=== PATIENT | female | born 1945 | race Caucasian/White ===

== ENCOUNTER → 2019-11-19 | Day surgery (SDC) | payer MEDICARE, OTHER ==
[2019-11-14 10:54] LABS: BASOPHILS % 0.4 % (0.0-1.0); EOSINOPHILS # (AUTO) 0.1 (0.0-0.4); EOSINOPHILS % 1.3 % (0.0-6.0); HEMATOCRIT 40.1 % (34.2-44.1); HEMOGLOBIN 12.9 g/dL (12.0-16.0); LYMPHOCYTES % 28.4 % (18.0-39.1); MEAN CORPUSCULAR HEMOGLOBIN 28.5 pg (28-32); MEAN CORPUSCULAR HGB CONC 32.2 g/dL (31-35); MEAN CORPUSCULAR VOLUME 88.7 fL (81-99); MONOCYTES # (AUTO) 0.7 (0.2-0.8); MONOCYTES % 10.5 % (4.4-11.3); NEUTROPHILS # (AUTO) 4.1 (2.1-6.9); NEUTROPHILS % 59.1 % (38.7-80.0); PLATELET COUNT 216 x10e3/uL (140-360); RED BLOOD COUNT 4.52 x10e6/uL (3.6-5.1)
[~2019-11-19] MED LIST: BIOTIN2500 MCG PO; CALTRATE 600600 MG PO; CALTRATE-600 W1 EACH PO; CRESTOR10 MG PO; DETROL LA4 MG PO; ESTRADIOL1 MG PO; LATANOPROST2.5 ML OP; MULTI-VITAMIN1 EACH PO; OMEGA 3 1,0001 EACH PO; OMEGA 3 FISH O1 EACH PO; OR PHACO EYE KIT ONE; POTASSIUM CHLORIDE PO; POTASSIUM PO; PREOP PHACO EYE KIT ONE; VITAMIN B PO; VITAMIN B12 PO; VITAMIN C PO; VITAMIN C1000 M1 PO; VITAMIN D PO; VITAMIN D31000 UNIT PO; VITAMIN E PO; VITAMIN E400 UNI2 PO
[2019-11-19 14:40] VITALS: BP 117/68
== END | disposition home or self-care (01) ==
LOC: OR 10:52
PROVIDERS: ATTEND Ophthalmology
DX: H25.12 Age-related nuclear cataract, left eye (principal); E78.5 Hyperlipidemia, unspecified; Z01.810 Encounter for preprocedural cardiovascular examination; Z01.812 Encounter for preprocedural laboratory examination; Z11.59 Encounter for screening for other viral diseases
CPT/HCPCS: 36415; 85025; 87635; 93005

== ENCOUNTER 2020-10-14 09:23 | Emergency (ER) | payer MEDICARE, OTHER ==
[~2020-10-14] VITALS: Ht 172.7 cm; Wt 68.0 kg
[~2020-10-14 09:23] MED LIST changes: -OR PHACO EYE KIT ONE; -PREOP PHACO EYE KIT ONE
[2020-10-14] MEDS: ONDANSETRON HCL INJ 2MG/ML 2ML 2 MG/ML VIAL IV STA ×2 (09:55→10:30)
[2020-10-14 09:59] LABS: BASOPHILS % 0.2 % (0.0-1.0); EOSINOPHILS % 0.1 % (0.0-6.0); HEMATOCRIT 35.5 % (34.2-44.1); HEMOGLOBIN 11.9 g/dL (12.0-16.0); LYMPHOCYTES # (AUTO) 1.5 (1.0-3.2); LYMPHOCYTES % 15.9 % (18.0-39.1); MEAN CORPUSCULAR HEMOGLOBIN 28.6 pg (28-32); MEAN CORPUSCULAR HGB CONC 33.5 g/dL (31-35); MEAN CORPUSCULAR VOLUME 85.3 fL (81-99); MONOCYTES # (AUTO) 0.8 (0.2-0.8); MONOCYTES % 8.1 % (4.4-11.3); NEUTROPHILS # (AUTO) 7.1 (2.1-6.9); PLATELET COUNT 199 x10e3/uL (140-360); RED BLOOD COUNT 4.16 x10e6/uL (3.6-5.1); RED CELL DISTRIBUTION WIDTH 11.8 % (11.7-14.4)
[2020-10-14 10:21] LABS: ALANINE AMINOTRANSFERASE 25 IU/L (0-55); ALBUMIN 4.3 g/dL (3.5-5.0); ALBUMIN/GLOBULIN RATIO 1.3 (0.8-2.0); ALKALINE PHOSPHATASE 61 IU/L (40-150); ANION GAP 16.5 mmol/L (8-16); BLOOD UREA NITROGEN 24 mg/dL (7-26); BUN/CREATININE RATIO 29 (6-25); CARBON DIOXIDE 22 mmol/L (22-29); CHLORIDE 101 mmol/L (98-107); CREATININE, SERUM 0.84 mg/dL (0.57-1.11); EST GLOMERULAR FILTRATION RATE > 60 ML/MIN (60-); GLUCOSE 123 mg/dL (74-118); POTASSIUM 3.5 mmol/L (3.5-5.1); SODIUM 136 mmol/L (136-145)
[2020-10-14] MEDS ORDERED: SODIUM CHLORIDE 0.9% 100 ML ONE (10:32)
[2020-10-14] MEDS ORDERED: IOPAMIDOL 370 MG/ML 200 ML INFUS..BTL INJ ONE (10:32)
[2020-10-14] MEDS ORDERED: DILTIAZEM HCL 5 MG/ML 5 ML VIAL IV PRN (11:45)
[2020-10-14 14:40] VITALS: BP 141/89
== END 2020-10-14 14:42 | disposition other institution (70) ==
LOC: ER 09:53
DX: I60.2 Nontraumatic subarachnoid hemorrhage from anterior communicating artery (principal); R11.2 Nausea with vomiting, unspecified; R53.1 Weakness; E78.5 Hyperlipidemia, unspecified; Z20.822 Contact with and (suspected) exposure to COVID-19
CPT/HCPCS: 36415; 70496; 70498; 80053; 84484; 85025; 99284; J2405; J7050; Q9967; U0002

== ENCOUNTER 2021-09-10 08:59 | Outpatient (RCR) | payer MEDICARE, OTHER | END 2021-09-11 | LOC: OT 08:59 | PROVIDERS: ATTEND Family Medicine | DX: I69.398 Other sequelae of cerebral infarction (principal); M25.842 Other specified joint disorders, left hand; M25.841 Other specified joint disorders, right hand ==

== ENCOUNTER 2021-10-05 08:59 | Outpatient (RCR) | payer MEDICARE, OTHER | END 2021-10-12 | LOC: OT 08:59 | PROVIDERS: ATTEND Family Medicine | DX: I69.998 Other sequelae following unspecified cerebrovascular disease (principal) ==